=== PATIENT | female | born 1980 | race Caucasian/White ===

== ENCOUNTER 2017-02-21 11:33 | Emergency (ER) | payer OTHER | END 2017-02-21 13:22 | disposition home or self-care (01) | LOC: ER 11:33 | DX: J01.90 Acute sinusitis, unspecified (principal); B96.89 Other specified bacterial agents as the cause of diseases classified elsewhere; N30.00 Acute cystitis without hematuria; R19.7 Diarrhea, unspecified; K21.9 Gastro-esophageal reflux disease without esophagitis; Z90.721 Acquired absence of ovaries, unilateral; Z90.79 Acquired absence of other genital organ(s) | CPT/HCPCS: 36415; 87502; 96360 ==